=== PATIENT | female | born 1990 | race American Indian/Alaskan Native ===

== ENCOUNTER 2022-06-22 20:38 | Emergency (ER) | payer MEDICAID ==
[2022-06-22 22:07] LABS: Basophils # (Auto) 0.1 K/mm3 (0.0-0.1); Basophils % (Auto) 0.6 % (0.0-1.8); Eosinophils # (Auto) 0.1 K/mm3 (0.0-0.4); Eosinophils % (Auto) 0.4 % (0.0-4.3); Hematocrit 39.1 % (30.3-42.9); Hemoglobin 12.6 gm/dl (10.1-14.3); Lymphocytes # (Auto) 3.8 K/mm3 (1.2-5.4); Lymphocytes % (Auto) 33.1 % (13.4-35.0); Mean Corpuscular HGB Conc 32 % (30-34); Mean Corpuscular Volume 93 fl (79-97); Monocytes # (Auto) 0.7 K/mm3 (0.0-0.8); Monocytes % (Auto) 6.1 % (0.0-7.3); Platelet Count 305 K/mm3 (140-440); Red Cell Distribution Width 14.4 % (13.2-15.2)
[2022-06-22 22:24] LABS: Alanine Aminotransferase 12 units/L (7-56); Albumin 4.4 g/dL (3.9-5); Blood Urea Nitrogen 9 mg/dL (7-17); Calcium 9.2 mg/dL (8.4-10.2); Hemolysis Index 7
[2022-06-22 22:41] LABS: BUN/Creatinine Ratio 15
--- NOTE | 2022-06-22 23:14 | XRay Report ---
RIGHT HAND, 3 VIEWS INDICATION / CLINICAL INFORMATION: pain. Seizure, swollen third digit after fall. COMPARISON: None available. FINDINGS: No convincing evidence for acute fracture or dislocation. However, there is a 2 mm calcific density i n the soft tissues adjacent to the DIP joint of the middle finger on the medial aspect. Overall appea gwen does not suggest acute fracture but clinical correlation with respect to area of focal pain is recommended. There is nonspecific soft tissue swelling throughout the midportion of the middle finger. IMPRESSION: 2 mm calcific density is seen adjacent to the DIP joint of the middle finger. Correlation is recommended with area of focal pain to exclude possibility of tiny avulsion fracture. No other significant findings. Signer Name: Lashay Uriostegui MD Signed: 06/22/2022 11:10 PM Workstation Name: [id number]
[2022-06-22] MEDS ORDERED: levETIRAcetam 500 MG in DEXTROSE 5% IN WATER 100 ML IV ONE (23:30)
[2022-06-22] MEDS ORDERED: SODIUM CHLORIDE 0.9% 1000 ML 1,000 ML IV ONE (23:33)
--- NOTE | 2022-06-22 23:40 | Emergency Department Report ---
ED Seizure HPI - General Chief Complaint: Seizure Stated Complaint: SEIZURE Time Seen by Provider: 06/22/22 21:21 Source: patient, EMS Mode of arrival: Stretcher Limitations: No Limitations - History of Present Illness Initial Comments: pt is out of town , [facility] , homless , on keppra compliant per her, has no place to go and injuried her right middle finger durings eizure no head injury , THC but no other drugs. MD Complaint: seizure -: hour(s) Description of Episode: loss of consciousness, tonic-clonic movement -: second(s) Witnessed:: No Trauma: No Seizure History: known seizure disorder Place: street/outdoors Possible Precipitating Event: stress Associated Symptoms: denies: denies other symptoms, chest pain, confusion, cough, diaphoresis - Related Data Allergies Allergy/AdvReac Type Severity Reaction Status Date / Time No Known Allergies Allergy Unverified 06/22/22 22:45 ED Review of Systems ROS: Stated complaint: SEIZURE Other details as noted in HPI Constitutional: denies: chills, fever Eyes: denies: eye pain, eye discharge, vision change ENT: denies: ear pain, throat pain Respiratory: denies: cough, shortness of breath, wheezing Cardiovascular: denies: chest pain, palpitations Endocrine: no symptoms reported Gastrointestinal: denies: abdominal pain, nausea, diarrhea Genitourinary: denies: urgency, dysuria, discharge Musculoskeletal: denies: back pain, joint swelling, arthralgia Skin: denies: rash, lesions Neurological: denies: headache, weakness, paresthesias Psychiatric: denies: anxiety, depression Hematological/Lymphatic: denies: easy bleeding, easy bruising ED Past Medical Hx - Past Medical History Previous Medical History?: Yes Hx Hypertension: No Hx CVA: No Hx Seizures: Yes Additional medical history: traumatic brain injury - Surgical History Past Surgical History?: No - Social History Smoking Status: Current Every Day Smoker ED Physical Exam - General Limitations: No Limitations General appearance: alert, in no apparent distress - Head Head exam: Present: atraumatic, normocephalic - Eye Eye exam: Present: normal appearance - ENT ENT exam: Present: mucous membranes moist - Neck Neck exam: Present: normal inspection - Respiratory Respiratory exam: Present: normal lung sounds bilaterally. Absent: respiratory distress - Cardiovascular Cardiovascular Exam: Present: regular rate, normal rhythm. Absent: systolic murmur, diastolic murmur, rubs, gallop - GI/Abdominal GI/Abdominal exam: Present: soft, normal bowel sounds - Extremities Exam Extremities exam: Present: normal inspection - Back Exam Back exam: Present: normal inspection - Neurological Exam Neurological exam: Present: alert, oriented X3 - Psychiatric Psychiatric exam: Present: normal affect, normal mood - Skin Skin exam: Present: warm, dry, intact, normal color. Absent: rash ED Course Vital Signs 06/22/22 22:42 Temperature 97.0 F L Pulse Rate 60 Respiratory 15 Rate Blood Pressure 118/72 O2 Sat by Pulse 98 Oximetry ED Medical Decision Making - Lab Data Result diagrams: 06/22/22 21:49 06/22/22 21:49 Critical care attestation.: If time is entered above; I have spent that time in minutes in the direct care of this critically ill patient, excluding procedure time. ED Disposition Clinical Impression: Seizure Disposition: 01 HOME / SELF CARE / HOMELESS Is pt being admited?: No Does the pt Need Aspirin: No Condition: Stable Instructions: Epilepsy, [id number]
[2022-06-22 23:54] LABS: Amphetamine Screen,Urine PRESUMPTIVE NEGATIVE; Benzodiazepines Screen,Urine PRESUMPTIVE NEGATIVE; Cannabinoid Screen,Urine PRESUMPTIVE POSITIVE; Cocaine Screen,Urine PRESUMPTIVE NEGATIVE; Methadone Screen,Urine PRESUMPTIVE NEGATIVE; Opiate Screen,Urine PRESUMPTIVE NEGATIVE
[2022-06-22 23:59] LABS: Color,Urine Yellow (Yellow)
[2022-06-23 00:02] LABS: Bacteria,Urine 1+ /HPF (Negative); Mucus,Urine 3+ /HPF
[2022-06-23] MEDS ORDERED: IBUPROFEN 800 MG TAB PO ONE (01:44)
[2022-06-23 02:48] VITALS: BP 118/70
== END 2022-06-23 02:41 | disposition home or self-care (01) ==
LOC: ED 20:38
DX: G40.909 Epilepsy, unspecified, not intractable, without status epilepticus (principal); F17.200 Nicotine dependence, unspecified, uncomplicated
CPT/HCPCS: 36415; 73130; 80053; 80307; 81001; 85025; 87086; 96361; 96374; 99284; J1953; J7030; J7060; 80320; G0480